=== PATIENT | female | born 1960 | race Caucasian/White ===

== ENCOUNTER 2019-06-02 15:53 | Outpatient (CLI) | payer OTHER ==
--- NOTE | 2019-06-02 16:23 | RAD ---
LEFT FOOT THREE VIEWS: History: Left foot pain following an injury. FINDINGS/IMPRESSION: Minimal dorsal soft tissue swelling. Small calcaneal plantar enthesophyte. No fracture, dislocation, or other significant acute osseous abnormality. POS: OFF
== END 2019-06-02 15:54 | disposition home or self-care (01) ==
LOC: BICRAD 15:53
PROVIDERS: ATTEND Family Medicine
DX: M79.672 Pain in left foot (principal); M79.89 Other specified soft tissue disorders; M77.52 Other enthesopathy of left foot and ankle